=== PATIENT | male | born 1965 | race Caucasian/White ===

== ENCOUNTER 2019-10-21 18:12 | Emergency (ER) | payer SELFPAY ==
[~2019-10-21] VITALS: Ht 175.3 cm; Wt 100.0 kg
[2019-10-21 18:26] VITALS: TEMP 97.1
[2019-10-21 19:30] LABS: HEMATOCRIT 44.1 % (42.0-52.0); HEMOGLOBIN 14.6 g/dl (13.5-18.0); MEAN CELL VOLUME 84 fl (80.0-100.0); MEAN CORPUSCULAR HEMOGLOBIN 28 pg (27.0-31.0); MEAN CORPUSCULAR HGB CONC 33 g/dl (33.0-37.0); MEAN PLATELET VOLUME 10.4 fl (7.4-10.4); PLATELET COUNT 341 K/mm3 (130-400); RED BLOOD COUNT 5.23 M/mm3 (4.20-5.60); REDCELL DISTRIBUTION WIDTH-CV 14.6 % (11.5-14.5)
[2019-10-21 20:02] LABS: ALBUMIN 4.3 gm/dL (3.5-5.0); BILIRUBIN,TOTAL 0.5 mg/dL (0.0-1.0); C-REACTIVE PROTEIN 5.8 mg/dL (0.0-0.9); CALCIUM 8.7 mg/dL (8.4-10.2); CREATININE, serum 0.95 (0.66-1.25); TOTAL PROTEIN 7.7 gm/dL (6.4-8.2)
[2019-10-21 20:42] LABS: COLLECTION METHOD CLEAN CATCH
[2019-10-21 20:47] LABS: MUCOUS Present /lpf; PH 5 (5-8); SQUAMOUS EPITHELIAL None Seen /hpf; URINE APPEARANCE Clear; URINE BACTERIA None Seen /hpf; URINE BILIRUBIN Negative (NEGATIVE); URINE BLOOD Negative (NEGATIVE); URINE COLOR Yellow; URINE GLUCOSE Negative (NEGATIVE); URINE KETONE Negative (NEGATIVE); URINE LEUKOCYTE ESTERASE Negative (NEGATIVE); URINE NITRATE Negative (NEGATIVE); URINE PROTEIN(semi-quant) Negative (NEGATIVE); URINE RBC 0-2 /hpf; URINE UROBILINOGEN Negative (NEGATIVE)
[2019-10-21] MEDS ORDERED: CIPRO 500MG TA500 MG PO (21:19)
[2019-10-21] MEDS ORDERED: NORCO 325 MG-51 TAB PO (21:19)
[2019-10-21] MEDS ORDERED: PHENERGAN 25 TA25 MG PO (21:19)
[2019-10-21] MEDS ORDERED: FLAGYL500 MG PO (21:19)
[2019-10-21 21:24] LABS: BAND 3 % (0-10); LYMPHOCYTE 28 % (20.0-51.0); MICROCYTOSIS 1+; NEUTROPHILS 58 % (42.0-75.2); PLATELET ESTIMATE NORMAL (NORMAL)
[2019-10-21 21:30] VITALS: BP 147/89; PULSE 93
== END 2019-10-21 21:40 | disposition home or self-care (01) ==
LOC: COL.ER 18:12
PROVIDERS: Emergency Medicine
DX: R10.2 Pelvic and perineal pain (principal)
CPT/HCPCS: J1170; J2405; J7030; Q9967

== ENCOUNTER 2020-02-20 18:06 | Emergency (ER) | payer SELFPAY ==
[~2020-02-20] VITALS: Ht 175.3 cm; Wt 109.1 kg
[~2020-02-20 18:06] MED LIST: CIPRO 500MG TA500 MG PO; FLAGYL500 MG PO; NORCO 325 MG-51 TAB PO; PHENERGAN 25 TA25 MG PO
[2020-02-20 18:43] VITALS: TEMP 98.6
[2020-02-20 19:31] LABS: HEMATOCRIT 45.9 % (42.0-52.0); HEMOGLOBIN 15.4 g/dl (13.5-18.0); MEAN CELL VOLUME 84 fl (80.0-100.0); MEAN CORPUSCULAR HEMOGLOBIN 28 pg (27.0-31.0); MEAN CORPUSCULAR HGB CONC 34 g/dl (33.0-37.0); MEAN PLATELET VOLUME 10.5 fl (7.4-10.4); PLATELET COUNT 350 K/mm3 (130-400); RED BLOOD COUNT 5.45 M/mm3 (4.20-5.60); REDCELL DISTRIBUTION WIDTH-CV 15.2 % (11.5-14.5)
[2020-02-20 19:42] LABS: STREP SCREEN NEGATIVE
[2020-02-20 19:47] LABS: ALANINE AMINOTRANSFERASE 33 U/L (4-49); ALBUMIN 4.4 gm/dL (3.5-5.0); ALKALINE PHOSPHATASE 117 U/L (50-136); ANION GAP 8 mmol/L (7-16); AST,SGOT 34 U/L (15-37); BILIRUBIN,TOTAL 0.4 mg/dL (0.0-1.0); BLOOD UREA NITROGEN 16 mg/dL (9-20); CALCIUM 8.9 mg/dL (8.4-10.2); CARBON DIOXIDE 25 mmol/L (22-30); CHLORIDE 103 mmol/L (98-107); CREATININE, serum 0.87 (0.66-1.25); GLUCOSE 94 mg/dL (74-106); POTASSIUM 4.3 mmol/L (3.4-5.0); SODIUM 135 mmol/L (137-145); TOTAL PROTEIN 7.8 gm/dL (6.4-8.2)
[2020-02-20 19:50] LABS: BAND 2 % (0-10); EOSINOPHIL 5 % (0-4); LYMPHOCYTE 40 % (20.0-51.0); NEUTROPHILS 45 % (42.0-75.2); PLATELET ESTIMATE NORMAL (NORMAL)
[2020-02-20 19:51] LABS: ANISOCYTOSIS 1+
[2020-02-20 20:26] LABS: TROPONIN-I < 0.012 ng/mL (0.000-0.035)
[2020-02-20] MEDS ORDERED: PREDNISONE20 MG PO (20:39)
[2020-02-20] MEDS ORDERED: DOXYCYCLINE 10100 MG PO (20:39)
[2020-02-20 22:09] VITALS: BP 149/94; PULSE 74
== END 2020-02-20 22:10 | disposition home or self-care (01) ==
LOC: COL.ER 18:06
PROVIDERS: Emergency Medicine
DX: J45.909 Unspecified asthma, uncomplicated (principal); R07.81 Pleurodynia; F17.210 Nicotine dependence, cigarettes, uncomplicated; J02.9 Acute pharyngitis, unspecified; Z90.89 Acquired absence of other organs; Z90.49 Acquired absence of other specified parts of digestive tract
CPT/HCPCS: J2270; J3010; J7030; J7512

== ENCOUNTER 2021-03-19 10:20 | Emergency (ER) | payer SELFPAY ==
[~2021-03-19] VITALS: Ht 175.3 cm; Wt 119.5 kg
[~2021-03-19 10:20] MED LIST changes: +DOXYCYCLINE 10100 MG PO; +PREDNISONE20 MG PO
[2021-03-19 10:33] VITALS: TEMP 98.2
[2021-03-19 11:11] LABS: BASO # 0.1 (0.0-0.2); BASO % 0.7 % (0.0-2.0); EOS # 0.6 (0.0-0.7); EOS % 5.2 % (0-4.0); GRAN # 5.6 (1.4-6.5); HEMATOCRIT 43.3 % (42.0-52.0); LYMPH # 3.5 (1.2-3.4); LYMPH % 31.4 % (20.0-51.0); MEAN CELL VOLUME 84 fl (80.0-100.0); MEAN CORPUSCULAR HEMOGLOBIN 27 pg (27.0-31.0); MEAN CORPUSCULAR HGB CONC 32 g/dl (33.0-37.0); MEAN PLATELET VOLUME 10.9 fl (7.4-10.4); MONO # 1.3 (0.1-0.6); MONO % 11.6 % (1.7-9.3); PLATELET COUNT 349 K/mm3 (130-400); RED BLOOD COUNT 5.16 M/mm3 (4.20-5.60); REDCELL DISTRIBUTION WIDTH-CV 15.2 % (11.5-14.5)
[2021-03-19 11:21] LABS: ALBUMIN 4.1 gm/dL (3.5-5.0); BILIRUBIN,TOTAL 0.3 mg/dL (0.0-1.0); CALCIUM 8.9 mg/dL (8.4-10.2); CREATININE, serum 0.9 (0.66-1.25); POTASSIUM 4.1 mmol/L (3.4-5.0); TOTAL PROTEIN 7.6 gm/dL (6.4-8.2)
[2021-03-19 11:33] LABS: TROPONIN-I 0.033 ng/mL (0.000-0.035)
[2021-03-19 11:46] LABS: C-REACTIVE PROTEIN 1.1 mg/dL (0.0-0.9)
[2021-03-19 12:11] LABS: COLLECTION METHOD RANDOM VOIDED
[2021-03-19 12:17] LABS: PH 5 (5-8); SQUAMOUS EPITHELIAL None Seen /hpf; URINE APPEARANCE Clear; URINE BACTERIA None Seen /hpf; URINE BILIRUBIN Negative (NEGATIVE); URINE BLOOD Negative (NEGATIVE); URINE COLOR Straw; URINE GLUCOSE Negative (NEGATIVE); URINE KETONE Negative (NEGATIVE); URINE LEUKOCYTE ESTERASE Negative (NEGATIVE); URINE NITRATE Negative (NEGATIVE); URINE PROTEIN(semi-quant) 2+ (NEGATIVE); URINE RBC 0-2 /hpf; URINE UROBILINOGEN Negative (NEGATIVE)
[2021-03-19 12:31] LABS: TRICYCLIC ANTIDEPRESS URINE NEGATIVE
[2021-03-19] MEDS ORDERED: DOXYCYCLINE 10100 MG PO (17:33)
[2021-03-19] MEDS ORDERED: PRINIVIL10 MG PO ×2 (17:33)
[2021-03-19] MEDS ORDERED: OMNICEF 300MG300 MG PO (17:33)
[2021-03-19] MEDS ORDERED: LASIX 40MG TABL40 MG PO ×2 (17:33)
[2021-03-19 18:03] VITALS: BP 149/100; PULSE 78
== END 2021-03-19 18:12 | disposition home or self-care (01) ==
LOC: COL.ER 10:20
PROVIDERS: Family Medicine; Physician Assistant
DX: F15.10 Other stimulant abuse, uncomplicated (principal); L03.116 Cellulitis of left lower limb; L03.115 Cellulitis of right lower limb; R13.10 Dysphagia, unspecified; R06.02 Shortness of breath; I11.0 Hypertensive heart disease with heart failure; I50.9 Heart failure, unspecified; F17.210 Nicotine dependence, cigarettes, uncomplicated; Z20.822 Contact with and (suspected) exposure to COVID-19
CPT/HCPCS: J1940; J2543; J3010; J3370; J7030; J7050; Q9967

== ENCOUNTER 2021-04-06 07:56 | Observation (INO) | payer SELFPAY ==
[~2021-04-06] VITALS: Ht 175.3 cm; Wt 119.5 kg
[~2021-04-06 07:56] MED LIST changes: +LASIX 40MG TABL40 MG PO; +OMNICEF 300MG300 MG PO; +PRINIVIL10 MG PO
[2021-04-06 08:33] LABS: HEMATOCRIT 43.3 % (42.0-52.0); MEAN CELL VOLUME 85 fl (80.0-100.0); MEAN CORPUSCULAR HEMOGLOBIN 27 pg (27.0-31.0); MEAN CORPUSCULAR HGB CONC 32 g/dl (33.0-37.0); MEAN PLATELET VOLUME 11.3 fl (7.4-10.4); PLATELET COUNT 324 K/mm3 (130-400); RED BLOOD COUNT 5.12 M/mm3 (4.20-5.60); REDCELL DISTRIBUTION WIDTH-CV 15.1 % (11.5-14.5)
[2021-04-06 08:40] LABS: PROTHROMBIN TIME 11.2 SECONDS (9.7-12.8)
[2021-04-06 08:43] LABS: PARTIAL THROMBOPLASTIN TIME 20.8 SECONDS (26.0-37.0)
[2021-04-06 08:44] LABS: ALBUMIN 4.1 gm/dL (3.5-5.0); BILIRUBIN,TOTAL 0.4 mg/dL (0.0-1.0); CALCIUM 9.3 mg/dL (8.4-10.2); CREATININE, serum 0.97 (0.66-1.25); POTASSIUM 4.4 mmol/L (3.4-5.0); TOTAL PROTEIN 7.6 gm/dL (6.4-8.2)
[2021-04-06 08:56] LABS: BAND 9 % (0-10); EOSINOPHIL 6 % (0-4); LYMPHOCYTE 20 % (20.0-51.0); NEUTROPHILS 55 % (42.0-75.2); TROPONIN-I 0.016 ng/mL (0.000-0.035)
[2021-04-06 08:57] LABS: PLATELET ESTIMATE NORMAL (NORMAL)
[2021-04-06 09:02] LABS: HYPOCHROMIA 1+
[2021-04-06 10:09] LABS: ARTERIAL BLD GAS O2 SATURATION 94.7 % (92-100); ARTERIAL BLD GAS TCO2 CT 28.3; ARTERIAL BLOOD GAS BASE EXCESS 0.6 (-2-2); ARTERIAL BLOOD GAS HCO3 26.8 meq/L (22-26); ARTERIAL BLOOD GAS PO2 74.2 mmHg (80-100); ARTERIAL BLOOD GAS pH 7.36 (7.35-7.45)
[2021-04-06 16:13] VITALS: BP 116/56; PULSE 61; TEMP 98
[2021-04-06 19:44] VITALS: BP 118/62; PULSE 88; TEMP 98.2
[2021-04-06 21:14] VITALS: BP 132/91; PULSE 88
[2021-04-06 21:36] LABS: COLLECTION METHOD CLEAN CATCH
[2021-04-06 21:43] LABS: PH 6 (5-8); SQUAMOUS EPITHELIAL None Seen /hpf; URINE APPEARANCE Clear; URINE BACTERIA None Seen /hpf; URINE BILIRUBIN Negative (NEGATIVE); URINE BLOOD 2+ (NEGATIVE); URINE COLOR Straw; URINE GLUCOSE Negative (NEGATIVE); URINE KETONE Negative (NEGATIVE); URINE LEUKOCYTE ESTERASE Negative (NEGATIVE); URINE NITRATE Negative (NEGATIVE); URINE PROTEIN(semi-quant) Negative (NEGATIVE); URINE RBC 0-2 /hpf; URINE UROBILINOGEN Negative (NEGATIVE)
[2021-04-06 21:55] LABS: TRICYCLIC ANTIDEPRESS URINE NEGATIVE
[2021-04-06 23:51] VITALS: BP 123/47; PULSE 93; TEMP 97.8
[2021-04-07] VITALS (10 sets, daily range): BP systolic 95–155; BP diastolic 45–95; PULSE 56–93; TEMP 98.1–98.7
[2021-04-07 06:32] LABS: HEMATOCRIT 46.6 % (42.0-52.0); HEMOGLOBIN 15.1 g/dl (13.5-18.0); MEAN CELL VOLUME 84 fl (80.0-100.0); MEAN CORPUSCULAR HEMOGLOBIN 27 pg (27.0-31.0); MEAN CORPUSCULAR HGB CONC 32 g/dl (33.0-37.0); MEAN PLATELET VOLUME 11.3 fl (7.4-10.4); PLATELET COUNT 327 K/mm3 (130-400); RED BLOOD COUNT 5.52 M/mm3 (4.20-5.60); REDCELL DISTRIBUTION WIDTH-CV 15.1 % (11.5-14.5)
[2021-04-07 06:42] LABS: ALBUMIN 4.4 gm/dL (3.5-5.0); BILIRUBIN,TOTAL 0.4 mg/dL (0.0-1.0); CALCIUM 8.8 mg/dL (8.4-10.2); CREATININE, serum 1.29 (0.66-1.25); MAGNESIUM 1.8 mg/dL (1.6-2.3); POTASSIUM 4.6 mmol/L (3.4-5.0); TOTAL PROTEIN 8.2 gm/dL (6.4-8.2)
[2021-04-07 07:10] LABS: TROPONIN-I 0.014 ng/mL (0.000-0.035)
[2021-04-07 07:47] LABS: BAND 16 % (0-10); EOSINOPHIL 1 % (0-4); LYMPHOCYTE 19 % (20.0-51.0); NEUTROPHILS 58 % (42.0-75.2)
[2021-04-07 07:48] LABS: PLATELET ESTIMATE NORMAL (NORMAL)
[2021-04-08 00:27] VITALS: BP 114/57; PULSE 89; TEMP 98.9
[2021-04-08 04:13] VITALS: BP 114/61; PULSE 89; TEMP 98.5
[2021-04-08 07:13] LABS: BASO # 0.1 (0.0-0.2); BASO % 0.5 % (0.0-2.0); EOS # 0.5 (0.0-0.7); GRAN # 6.6 (1.4-6.5); GRAN % 58.7 % (42.2-75.2); HEMATOCRIT 46.2 % (42.0-52.0); HEMOGLOBIN 14.9 g/dl (13.5-18.0); LYMPH # 2.6 (1.2-3.4); LYMPH % 23.1 % (20.0-51.0); MEAN CELL VOLUME 85 fl (80.0-100.0); MEAN CORPUSCULAR HEMOGLOBIN 27 pg (27.0-31.0); MEAN CORPUSCULAR HGB CONC 32 g/dl (33.0-37.0); MEAN PLATELET VOLUME 11.1 fl (7.4-10.4); MONO # 1.4 (0.1-0.6); MONO % 12.8 % (1.7-9.3); PLATELET COUNT 323 K/mm3 (130-400); RED BLOOD COUNT 5.44 M/mm3 (4.20-5.60); REDCELL DISTRIBUTION WIDTH-CV 15.2 % (11.5-14.5)
[2021-04-08 07:19] LABS: CALCIUM 8.7 mg/dL (8.4-10.2); CREATININE, serum 1.41 (0.66-1.25); POTASSIUM 4.5 mmol/L (3.4-5.0)
[2021-04-08 07:36] VITALS: BP 133/85; PULSE 94; TEMP 98.4
[2021-04-08] MEDS ORDERED: COREG 3.123.125 MG/T PO (09:08)
[2021-04-08] MEDS ORDERED: OMNICEF 300MG300 MG PO (09:10)
[2021-04-08] MEDS ORDERED: CIPRODEX OT (09:10)
[2021-04-08] MEDS ORDERED: PRINIVIL5 MG PO (09:11)
[2021-04-08 12:06] VITALS: BP 128/65; PULSE 88; TEMP 98.6
[2021-04-08] MEDS ORDERED: LIPITOR20 MG PO (12:24)
== END 2021-04-08 13:00 | disposition home or self-care (01) ==
LOC: COL.ER 07:56 → MEDICAL 11:31
PROVIDERS: Family Medicine; Physician Assistant; ADMIT Internal Medicine
DX: I11.0 Hypertensive heart disease with heart failure (principal); I50.23 Acute on chronic systolic (congestive) heart failure; I42.0 Dilated cardiomyopathy; H66.90 Otitis media, unspecified, unspecified ear; E78.5 Hyperlipidemia, unspecified; D72.829 Elevated white blood cell count, unspecified; N17.9 Acute kidney failure, unspecified; G40.909 Epilepsy, unspecified, not intractable, without status epilepticus; E11.9 Type 2 diabetes mellitus without complications; E66.9 Obesity, unspecified; F19.90 Other psychoactive substance use, unspecified, uncomplicated; F17.210 Nicotine dependence, cigarettes, uncomplicated; Z20.822 Contact with and (suspected) exposure to COVID-19; Z79.899 Other long term (current) drug therapy; Z80.9 Family history of malignant neoplasm, unspecified
CPT/HCPCS: C1769; G0378; J1644; J1650; J1815; J1940; J2250; J2270; J3010; Q9967

== ENCOUNTER 2021-07-24 18:31 | Emergency (ER) | payer OTHER ==
[~2021-07-24] VITALS: Ht 175.3 cm; Wt 127.3 kg
[~2021-07-24 18:31] MED LIST changes: +CIPRODEX OT; +COREG 3.123.125 MG/T PO; +LIPITOR20 MG PO; +PRINIVIL5 MG PO
[2021-07-24 19:38] LABS: HEMATOCRIT 40.2 % (42.0-52.0); HEMOGLOBIN 13.2 g/dl (13.5-18.0); MEAN CELL VOLUME 85 fl (80.0-100.0); MEAN CORPUSCULAR HEMOGLOBIN 28 pg (27.0-31.0); MEAN CORPUSCULAR HGB CONC 33 g/dl (33.0-37.0); MEAN PLATELET VOLUME 11.6 fl (7.4-10.4); PLATELET COUNT 352 K/mm3 (130-400); RED BLOOD COUNT 4.75 M/mm3 (4.20-5.60); REDCELL DISTRIBUTION WIDTH-CV 15.4 % (11.5-14.5)
[2021-07-24 19:59] LABS: ANISOCYTOSIS 1+; BAND 2 % (0-10); EOSINOPHIL 2 % (0-4); HYPOCHROMIA 1+; LYMPHOCYTE 12 % (20.0-51.0); NEUTROPHILS 75 % (42.0-75.2); PLATELET ESTIMATE NORMAL (NORMAL)
[2021-07-24 20:17] LABS: ALBUMIN 3.6 gm/dL (3.5-5.0); BILIRUBIN,TOTAL 0.3 mg/dL (0.2-1.2); C-REACTIVE PROTEIN 3.2 mg/dL (0.00-0.50); CALCIUM 9.2 mg/dL (8.4-10.2); CREATININE, serum 1.38 mg/dL (0.72-1.25); POTASSIUM 4.5 mmol/L (3.5-4.5); TOTAL PROTEIN 7.7 gm/dL (6.2-8.1)
[2021-07-24] MEDS ORDERED: OXYCODONE H5 MG/5 ML PO (20:59)
[2021-07-24 21:37] VITALS: BP 146/64; PULSE 72; TEMP 97.7
== END 2021-07-24 21:39 | disposition home or self-care (01) ==
LOC: COL.ER 18:31
PROVIDERS: Nurse Practitioner; Personal Emergency Response Attendant
DX: G89.18 Other acute postprocedural pain (principal); I50.9 Heart failure, unspecified; I11.0 Hypertensive heart disease with heart failure; F17.200 Nicotine dependence, unspecified, uncomplicated; Z90.09 Acquired absence of other part of head and neck; Z79.899 Other long term (current) drug therapy
CPT/HCPCS: J1170; J7030

== ENCOUNTER 2021-07-25 21:48 | Observation (INO) | payer OTHER ==
[~2021-07-25] VITALS: Ht 175.3 cm; Wt 129.8 kg
[~2021-07-25 21:48] MED LIST changes: +OXYCODONE H5 MG/5 ML PO
[2021-07-25 22:39] LABS: BASO # 0.1 K/mm3 (0.0-0.2); BASO % 0.3 % (0.0-2.0); EOS # 0.3 K/mm3 (0.0-0.7); EOS % 2.1 % (0-4.0); GRAN # 8.8 K/mm3 (1.4-6.5); GRAN % 61.2 % (42.2-75.2); HEMATOCRIT 39.5 % (42.0-52.0); LYMPH # 3.5 K/mm3 (1.2-3.4); LYMPH % 24.5 % (20.0-51.0); MEAN CELL VOLUME 84 fl (80.0-100.0); MEAN CORPUSCULAR HEMOGLOBIN 28 pg (27.0-31.0); MEAN CORPUSCULAR HGB CONC 33 g/dl (33.0-37.0); MEAN PLATELET VOLUME 10.8 fl (7.4-10.4); MONO # 1.5 K/mm3 (0.1-0.6); MONO % 10.6 % (1.7-9.3); PLATELET COUNT 308 K/mm3 (130-400); RED BLOOD COUNT 4.72 M/mm3 (4.20-5.60); REDCELL DISTRIBUTION WIDTH-CV 15.2 % (11.5-14.5)
[2021-07-25 22:57] LABS: ALBUMIN 3.5 gm/dL (3.5-5.0); BILIRUBIN,TOTAL 0.5 mg/dL (0.2-1.2); C-REACTIVE PROTEIN 3.5 mg/dL (0.00-0.50); CALCIUM 9.7 mg/dL (8.4-10.2); CREATININE, serum 0.94 mg/dL (0.72-1.25); POTASSIUM 4.6 mmol/L (3.5-4.5); TOTAL PROTEIN 7.6 gm/dL (6.2-8.1)
[2021-07-26] VITALS (608 sets, daily range): BP systolic 124–190; BP diastolic 72–92; PULSE 60–81; TEMP 97.7–98.8; O2SAT 82–98
[2021-07-26] MEDS ORDERED: LASIX 40MG TABL40 MG PO (03:38)
[2021-07-26 09:10] LABS: CALCIUM 9.1 mg/dL (8.4-10.2); POTASSIUM 4.7 mmol/L (3.5-4.5)
--- NOTE | 2021-07-26 10:45 | NUR ---
MR. PIERRE WAS SLEEPING AT MORNING ASSESSMENT, EASILY TO WAKE. HIS SPEACH IS THICK AND MUFFLED DUE TO UPPER AIRWAY OBSTRUCTION. HE COMPLAINED OF PAIN IN HIS THROAT, WORSE ON THE LEFT SIDE. WHEN HE FALLS ASLEEP MR. DE SANTIAGO OXYGEN SATURATION FALLS INTO THE 80S AND HEART RATE INTO THE 40S. AT THIS TIME THE HEAD OF HIS BED IS ELEVATED AND HAS 4 PILLOWS BEHIND HIM.
[2021-07-26 11:00] LABS: BASO % 0.2 % (0.0-2.0); GRAN # 9.5 K/mm3 (1.4-6.5); GRAN % 78.2 % (42.2-75.2); HEMATOCRIT 43.2 % (42.0-52.0); HEMOGLOBIN 13.7 g/dl (13.5-18.0); LYMPH # 2.1 K/mm3 (1.2-3.4); LYMPH % 16.9 % (20.0-51.0); MEAN CELL VOLUME 85 fl (80.0-100.0); MEAN CORPUSCULAR HEMOGLOBIN 27 pg (27.0-31.0); MEAN CORPUSCULAR HGB CONC 32 g/dl (33.0-37.0); MEAN PLATELET VOLUME 11.3 fl (7.4-10.4); MONO # 0.4 K/mm3 (0.1-0.6); MONO % 3.5 % (1.7-9.3); PLATELET COUNT 380 K/mm3 (130-400); RED BLOOD COUNT 5.06 M/mm3 (4.20-5.60); REDCELL DISTRIBUTION WIDTH-CV 15.4 % (11.5-14.5)
--- NOTE | 2021-07-26 12:36 | NUR ---
Initial visit; Patient thanked Mixer Lever Operator for looking in on him and offering prayer and God's blessings. Mixer Lever Operator will keep Patient in her prayers and will follow up.
--- NOTE | 2021-07-26 14:35 | NUR ---
Manager Lvn met with patient to discuss discharge planning. Patient lives with his life partner, Yolanda Ocampo (ph#[phone]) and advised they are not yet. Patient sees Jazmín Cervantes at [facility] for primary care and obtains medications from [facility]. Patient does not use any DME at home, however advised he sometimes uses a walking stick. Patient reports independence with ADLS. SW discussed Advance Directives with patient who advised he would like to designate his partner, Yolanda as DPOA-HC. Patient verbalized understanding of designating DPOA and chose to designate Yolanda and no one else. SW and RN provided witness signature. SW provided original and copies to patient, then placed copy in chart. Discharge Plan: Home
--- NOTE | 2021-07-26 22:00 | NUR ---
PATIENT COMPLAINING OF PAIN TO THROAT, GIVEN PRN LIDOCAINE SWISH AND SWALLOW ALSO WITH APPROVAL OF LINNETTE ANTONY PATIENT GIVEN ICE CHIPS WHICH HE DID WELL WITH PATIENT ASKED FOR SOME JELLO, ABLE TO CONSUME WITHOUT DIFFICULTY EXPLAINED THAT ICE CHIPS AND LIDOCAIN SWISH AND SWALLOW WILL BE MORE EFFECTIVE AT RELIEVING THROAT PAIN THAN SYSTEMIC PAIN MEDICATION, PATIENT APPEARS ACCEPTING OF THIS AT THIS TIME
--- NOTE | 2021-07-26 22:01 | NUR ---
NOTED NO PO PAIN MEDICATIONS ORDERED, PATIENT STATED THAT THE TOLD HIM HE WAS GOING TO SWITCH HIS PAIN MEDICATIONS
--- NOTE | 2021-07-26 23:58 | NUR ---
DISSCUSSED WITH LINNETTE SIDDIQI PATIENT PAIN MANAGEMENT AND NOTE FROM DR. HARRY REGARDING CHANGE IN PAIN MEDICATION ORDER OBTAINED FOR OXYCODONE PER DR. HARRY'S NOTE
[2021-07-27] VITALS (387 sets, daily range): BP systolic 128–134; BP diastolic 68–81; PULSE 50–58; TEMP 98–98.2; O2SAT 68–99
--- NOTE | 2021-07-27 00:16 | NUR ---
ENTERED PATIENT ROOM TO OBTAIN BLOOD SUGAR AND TELL HIM ABOUT NEW ORDERS FOR PAIN MEDICATION, PATIENT SNORING ABLE TO AWAKEN PATIENT AND OBTAIN BLOOD SUGAR, BUT PATIENT FELL INSTANTLY BACK TO SLEEP
--- NOTE | 2021-07-27 05:40 | NUR ---
Report received DIVINA Rice
[2021-07-27 07:08] LABS: HEMATOCRIT 41.4 % (42.0-52.0); HEMOGLOBIN 13.4 g/dl (13.5-18.0); MEAN CELL VOLUME 85 fl (80.0-100.0); MEAN CORPUSCULAR HEMOGLOBIN 28 pg (27.0-31.0); MEAN CORPUSCULAR HGB CONC 32 g/dl (33.0-37.0); PLATELET COUNT 384 K/mm3 (130-400); RED BLOOD COUNT 4.88 M/mm3 (4.20-5.60); REDCELL DISTRIBUTION WIDTH-CV 15.3 % (11.5-14.5)
[2021-07-27 07:27] LABS: CALCIUM 9.3 mg/dL (8.4-10.2); CREATININE, serum 1.04 mg/dL (0.72-1.25); POTASSIUM 4.2 mmol/L (3.5-4.5)
--- NOTE | 2021-07-27 07:29 | NUR ---
Report given to DIVINA Robles and DIVINA Ren
[2021-07-27 07:50] LABS: BAND 6 % (0-10); EOSINOPHIL 1 % (0-4); LYMPHOCYTE 21 % (20.0-51.0); METAMYELOCYTE 1 % (0-0); NEUTROPHILS 58 % (42.0-75.2); PLATELET ESTIMATE NORMAL (NORMAL)
--- NOTE | 2021-07-27 11:27 | NUR ---
Patient to transfer up to the medical floor and is on 3 liters of oxygen at this time.
--- NOTE | 2021-07-27 13:30 | NUR ---
PT TOLERATED SOFT DIET FOR LUNCH WITHOUT DIFFICULTY. PT STATES WARM FOOD "GOES DOWN EASY", NOTED SOME PAIN WITH COLD DRINKS. STATES WILL JUST LIMIT COLD FOOD AT HOME. DR. GOYAL CALLED, OK TO DISCHARGE PT. WILL GET PT READY TO GO HOME. SIGNIFICANT OTHER AT BEDSIDE.
[2021-07-27] MEDS ORDERED: GLUCOPHAGE500 MG/TAB PO (13:58)
[2021-07-27] MEDS ORDERED: PREDNISONE10 MG PO (14:02)
[2021-07-27] MEDS ORDERED: PERCOCET 325 MG1 TA3 PO (14:04)
--- NOTE | 2021-07-27 14:30 | NUR ---
PT DISCHARGED TO HOME VIA WHEELCHAIR TO PT ENTERANCE. SIGNIFICANT OTHER DRIVING PT HOME. ALL INSTRUCTIONS GIVEN AND WENT OVER WITH PT, STATES UNDERSTANDING. PIV DC'D WITH NO COMPLICATIONS.
--- NOTE | 2021-07-27 15:09 | NUR ---
Freight Separator collaborated with RNChantelle as patient discharged home today. Chantelle advised patient was weened down to room air prior to discharge and has follow up scheduled for outpatient sleep study.
== END 2021-07-27 14:33 | disposition home or self-care (01) ==
LOC: COL.ER 21:48 → ICU 07-26 01:30
PROVIDERS: Emergency Medicine; Student in an Organized Health Care Education/Training Program; ADMIT Student in an Organized Health Care Education/Training Program
DX: J95.89 Other postprocedural complications and disorders of respiratory system, not elsewhere classified (principal); R52 Pain, unspecified; R06.00 Dyspnea, unspecified; D72.829 Elevated white blood cell count, unspecified; I11.0 Hypertensive heart disease with heart failure; I50.20 Unspecified systolic (congestive) heart failure; I42.0 Dilated cardiomyopathy; E11.9 Type 2 diabetes mellitus without complications; E66.9 Obesity, unspecified; G40.909 Epilepsy, unspecified, not intractable, without status epilepticus; F17.210 Nicotine dependence, cigarettes, uncomplicated; F15.90 Other stimulant use, unspecified, uncomplicated; E78.5 Hyperlipidemia, unspecified; Z79.891 Long term (current) use of opiate analgesic; Z79.82 Long term (current) use of aspirin; Z79.899 Other long term (current) drug therapy
CPT/HCPCS: G0378; J1100; J1650; J1815; J1940; J2270; J3010; J7030; Q9967

== ENCOUNTER 2021-08-01 15:00 | Emergency (ER) | payer OTHER ==
[~2021-08-01] VITALS: Ht 175.3 cm; Wt 124.5 kg
[~2021-08-01 15:00] MED LIST changes: +GLUCOPHAGE500 MG/TAB PO; +PERCOCET 325 MG1 TA3 PO; +PREDNISONE10 MG PO
[2021-08-01 15:49] VITALS: BP 125/70; PULSE 70; TEMP 97
== END 2021-08-01 16:15 | disposition home or self-care (01) ==
LOC: COL.ER 15:00
DX: G89.18 Other acute postprocedural pain (principal); J02.9 Acute pharyngitis, unspecified; I11.0 Hypertensive heart disease with heart failure; F17.210 Nicotine dependence, cigarettes, uncomplicated; Z90.89 Acquired absence of other organs; Z88.1 Allergy status to other antibiotic agents; Z79.899 Other long term (current) drug therapy

== ENCOUNTER 2022-01-19 09:53 | Inpatient (IN) | payer SELFPAY ==
[~2022-01-19] VITALS: Ht 175.3 cm; Wt 128.0 kg
[2022-01-19 11:17] LABS: HEMATOCRIT 42.9 % (42.0-52.0); HEMOGLOBIN 14.6 g/dl (13.5-18.0); MEAN CELL VOLUME 82 fl (80.0-100.0); MEAN CORPUSCULAR HEMOGLOBIN 28 pg (27-31); MEAN CORPUSCULAR HGB CONC 34 g/dl (33.0-37.0); MEAN PLATELET VOLUME 11.5 fl (7.4-10.4); PLATELET COUNT 331 K/mm3 (130-400); RED BLOOD COUNT 5.21 M/mm3 (4.20-5.60); REDCELL DISTRIBUTION WIDTH-CV 14.9 % (11.5-14.5)
[2022-01-19 11:39] LABS: ALANINE AMINOTRANSFERASE 45 U/L (0-55); ALBUMIN 3.8 gm/dL (3.5-5.0); ALKALINE PHOSPHATASE 139 U/L (40-150); ANION GAP 13 mmol/L (7-16); AST,SGOT 49 U/L (5-34); BILIRUBIN,TOTAL 0.4 mg/dL (0.2-1.2); BLOOD UREA NITROGEN 23 mg/dL (8-26); C-REACTIVE PROTEIN 1.16 mg/dL (0.00-0.50); CALCIUM 9.3 mg/dL (8.4-10.2); CARBON DIOXIDE 24 mmol/L (22-29); CHLORIDE 93 mmol/L (98-107); CREATININE, serum 1.32 mg/dL (0.72-1.25); LIPASE 259 U/L (8-78); SODIUM 130 mmol/L (136-145); TOTAL PROTEIN 8.2 gm/dL (6.2-8.1)
[2022-01-19 11:40] LABS: BAND 2 % (0-10); BASOPHIL 1 % (0-2); EOSINOPHIL 2 % (0-4); GLUCOSE 431 mg/dL (70-99); LYMPHOCYTE 44 % (20.0-51.0); METAMYELOCYTE 1 % (0-0); NEUTROPHILS 44 % (42.0-75.2); PLATELET ESTIMATE NORMAL (NORMAL)
[2022-01-19 11:41] LABS: STOMATOCYTE 1+
[2022-01-19 11:48] LABS: TROPONIN-I < 0.010 ng/mL (0.00-0.033)
[2022-01-19 12:06] LABS: ARTERIAL BLD GAS O2 SATURATION 95.4 % (92-100); ARTERIAL BLD GAS TCO2 CT 29.8; ARTERIAL BLOOD GAS HCO3 28.1 meq/L (22-26); ARTERIAL BLOOD GAS PCO2 54.3 mmHg (35-45); ARTERIAL BLOOD GAS PO2 80.1 mmHg (80-100); ARTERIAL BLOOD GAS pH 7.33 (7.35-7.45)
[2022-01-19] MEDS ORDERED: COREG12.5 MG PO (12:46)
[2022-01-19] MEDS ORDERED: GLUCOSAMINE & C1 CA2 PO (12:47)
[2022-01-19] MEDS ORDERED: ASPIRIN 81M81 MG/TA2 PO (12:48)
[2022-01-19] MEDS ORDERED: ALDACTONE 25MG25 M1 PO (12:49)
--- NOTE | 2022-01-19 16:45 | NUR ---
PT ARRIVED FROM THE ED. DIVINA CÁRDENAS DROPPED PATIENT OFF IN THE ROOM. THE PATIENT IS SLEEPING AT THIS TIME.
[2022-01-19 17:59] VITALS: BP 118/79; PULSE 86; TEMP 98.3
[2022-01-19 20:21] VITALS: BP 92/49; PULSE 78; TEMP 98.2
--- NOTE | 2022-01-19 21:55 | NUR ---
Patient assessed around 1949. Alert and oriented x 4, but drowsy. Awakens easily. Denies having pain and discomfort. Patient did not have IV access. Beef Cattle Grazier able to obtain IV access to right hand around 2029, and started IV fluids and given Solumedrol per orders at that time. Retimed medications due to giving medications late. Reports SOB and dyspnea with exertion. LS CTA in upper lobes, diminished in lower. Reports moist cough with thick yellow sputum production. Given sputum specimen cup to obtain sputum, but none obtained at this time. On oxygen at 4 L/min via NC. HRR. Telemetry in place. BSAx4. Generalized edema, 1+ BUE and BLE. Patient voices no questions, needs, or concerns at this time. In bed with call light within reach. Bed alarm on for safety.
[2022-01-20] VITALS (7 sets, daily range): BP systolic 109–150; BP diastolic 59–84; PULSE 83–105; TEMP 98–99
--- NOTE | 2022-01-20 05:55 | NUR ---
Patient complained of headache once this shift and given PRN APAP. Continues on IV fluids per orders. Afebrile this shift. Continues on oxygen at 4 L/min via NC, but does keep taking oxygen off. Recieved steroids and ABX per orders. Patient was more alert and talkative around 0330, stated that he was starting to feel better at that time. Voices no questions, needs, or concerns. In bed with call light within reach. Bed alarm on.
[2022-01-20 06:41] LABS: CALCIUM 8.8 mg/dL (8.4-10.2); CREATININE, serum 1.46 mg/dL (0.72-1.25); MAGNESIUM 1.9 mg/dL (1.6-2.6); POTASSIUM 5.1 mmol/L (3.5-4.5)
[2022-01-20 08:04] LABS: TRICYCLIC ANTIDEPRESS URINE NEGATIVE
[2022-01-20 08:40] LABS: BASO % 0.2 % (0.0-2.0); HEMATOCRIT 42.6 % (42.0-52.0); LYMPH # 2.8 K/mm3 (1.2-3.4); LYMPH % 14.3 % (20.0-51.0); MEAN CELL VOLUME 84 fl (80.0-100.0); MEAN CORPUSCULAR HEMOGLOBIN 28 pg (27-31); MEAN CORPUSCULAR HGB CONC 33 g/dl (33.0-37.0); MEAN PLATELET VOLUME 11.5 fl (7.4-10.4); MONO # 0.3 K/mm3 (0.1-0.6); MONO % 1.3 % (1.7-9.3); PLATELET COUNT 321 K/mm3 (130-400); RED BLOOD COUNT 5.06 M/mm3 (4.20-5.60); REDCELL DISTRIBUTION WIDTH-CV 14.7 % (11.5-14.5)
--- NOTE | 2022-01-20 09:49 | NUR ---
UA and sputum collected.
--- NOTE | 2022-01-20 10:29 | NUR ---
Initial visit; Patient thanked Charge Accounts Audit Clerk for checking on him and offering God's blessings and keeping him in aircraft detail draftsperson's prayers.
--- NOTE | 2022-01-20 10:30 | NUR ---
Initial visit; Patient thanked Brick Offbearer for looking in on him, offering prayer and God's blessings. Brick Offbearer will keep Julio in her prayers as well.
--- NOTE | 2022-01-20 11:53 | NUR ---
Patient's BG 432, Lakeisha notified, 14units SSI given SQ as per DEC.
--- NOTE | 2022-01-20 12:42 | NUR ---
contact worker met with patient to discuss discharge plan. Patient currently lives at home with his life partner Yolanda Ocampo ([phone]) in [place]. Patient reports to being fully independent with his ADL's and does not utilize any DME to assist with mobility. States " i make cane's so if i need one, i'll just make me one". Patient is currently on 3L on NC oxygen during interaction, but reports that he does not use oxygen at home. PCP is LINNETTE Rosales at [facility] and he utilizes [facility] in [place] for medications. Patient reports that the only medication that he has trouble affording it " the one that cost about $700". Patient does have a DPOA-HC established listing Yolanda and a copy can be found in the patient's EMR. Patient is planning on returning home once medically ready. Discharge plan: Home
--- NOTE | 2022-01-20 16:26 | NUR ---
Patient has done well today and is currently sleeping. was at bedside earlier and stated the patient is at his baseline for mentation. Patient moves very well and is independent.
--- NOTE | 2022-01-20 16:49 | NUR ---
Lakeisha ANGLIN, notified that patient's BG is 453.
--- NOTE | 2022-01-20 22:00 | NUR ---
PT STATES HE DOES NOT WEAR A CPAP AT HOME AND HAS NOT HAD A HOME STUDY. ORDER INCOMPLETE WITHOUT SETTINGS. WILL MONITOR O2 SAT THROUGH SHIFT.
--- NOTE | 2022-01-20 22:23 | NUR ---
Patient assessed around 2100. Alert and oriented, and able to make needs known. Denies having pain and discomfort. Peripheral INT to right hand. Reports SOB and dyspnea with exertion. On oxygen at 3 L/min via NC. LS CTA in upper lobes, diminished in lower. HRR. Telemetry in place: normal sinus. BSAx4. Abdomen soft and non-tender. 1+ edema BLE. Voices no questions, needs, or concerns at this time. In bed with call light within reach.
[2022-01-21 00:03] VITALS: BP 126/67; PULSE 87; TEMP 97.4
--- NOTE | 2022-01-21 01:32 | NUR ---
Patient's BS around midnight was 427. Called to RYLAN Egan. New order for IV insulin and to recheck in 1 hour. Given around 0030 per orders. Recheck around 0130 was 298. Order to give high dose sliding scale SQ per orders. Given insulin per orders.
[2022-01-21 04:46] VITALS: BP 127/63; PULSE 70; TEMP 98.4
--- NOTE | 2022-01-21 05:56 | NUR ---
Patient recieved PRN APAP and PRN Tramadol once this shift for headache and back pain. Patient has been drowsy, but does awaken to verbal stimuli. Recieved insulin per orders. Continues on steroids and ABX per orders for pneumonia. On oxygen at 4 L/min via NC. Voices no questions, needs, or concerns at this time. In bed with call light within reach.
[2022-01-21 06:48] LABS: MEAN CELL VOLUME 86 fl (80.0-100.0); MEAN CORPUSCULAR HEMOGLOBIN 29 pg (27-31); MEAN CORPUSCULAR HGB CONC 33 g/dl (33.0-37.0); MEAN PLATELET VOLUME 11.5 fl (7.4-10.4); PLATELET COUNT 319 K/mm3 (130-400); RED BLOOD COUNT 4.91 M/mm3 (4.20-5.60); REDCELL DISTRIBUTION WIDTH-CV 15.1 % (11.5-14.5)
[2022-01-21 07:09] LABS: CALCIUM 8.6 mg/dL (8.4-10.2); CREATININE, serum 1.09 mg/dL (0.72-1.25); MAGNESIUM 2.2 mg/dL (1.6-2.6); POTASSIUM 4.1 mmol/L (3.5-4.5)
[2022-01-21 07:51] VITALS: BP 148/77; PULSE 68; TEMP 98.1
[2022-01-21 08:05] LABS: ANISOCYTOSIS 1+; BAND 3 % (0-10); LYMPHOCYTE 24 % (20.0-51.0); NEUTROPHILS 60 % (42.0-75.2); NUCLEATED RED BLOOD CELL 1 (0-6); PLATELET ESTIMATE NORMAL (NORMAL)
--- NOTE | 2022-01-21 10:00 | NUR ---
Reviewed and agree with student nurse assessment.
[2022-01-21 11:36] VITALS: BP 128/67; PULSE 76; TEMP 98.2
[2022-01-21 16:54] VITALS: BP 125/57; PULSE 97; TEMP 98.2
--- NOTE | 2022-01-21 17:10 | NUR ---
Pt awake and alert. Ambulating in the hallway. States that he's feeling much better after his shower. Denies needs. Call light within reach.
[2022-01-21 19:21] VITALS: BP 119/66; PULSE 81; TEMP 98.5
--- NOTE | 2022-01-21 23:02 | NUR ---
ASSESSMENT COMPLETED; PATIENT IN NO ACUTE DISTRESS. PATIENT RESTING COMFORTABLY IN BED. WILL CONTINUE TO MONITOR
[2022-01-22 00:52] VITALS: BP 131/66; PULSE 79; TEMP 98.5
[2022-01-22 04:35] VITALS: BP 137/73; PULSE 71; TEMP 97.7
--- NOTE | 2022-01-22 06:30 | NUR ---
THE PATIENT IS SLEEPING IN BED UPON ENTRY. WILL RETURN FOR ASSESSMENT AND MEDICATIONS.
--- NOTE | 2022-01-22 06:44 | NUR ---
PT DID NOT WEAR CPAP AT NIGHT. HAD A MIGRAINE AND RT DEPARTMENT DOES NOT HAVE AUTO TITRATE CPAP'S TO USE AT THIS TIME DUE TO A RECALL. PT STATES THEY NEED A SLEEP STUDY DONE. DOES NOT WEAR CPAP AT HOME.
[2022-01-22 07:38] LABS: HEMATOCRIT 43.9 % (42.0-52.0); HEMOGLOBIN 14.3 g/dl (13.5-18.0); MEAN CELL VOLUME 85 fl (80.0-100.0); MEAN CORPUSCULAR HEMOGLOBIN 28 pg (27-31); MEAN CORPUSCULAR HGB CONC 33 g/dl (33.0-37.0); MEAN PLATELET VOLUME 11.5 fl (7.4-10.4); PLATELET COUNT 326 K/mm3 (130-400); RED BLOOD COUNT 5.18 M/mm3 (4.20-5.60); REDCELL DISTRIBUTION WIDTH-CV 15.3 % (11.5-14.5)
[2022-01-22 07:59] VITALS: BP 129/68; PULSE 68; TEMP 98
[2022-01-22 08:32] LABS: BAND 1 % (0-10)
[2022-01-22 08:33] LABS: ANISOCYTOSIS 1+; LYMPHOCYTE 25 % (20.0-51.0); PLATELET ESTIMATE NORMAL (NORMAL)
[2022-01-22 08:34] LABS: NEUTROPHILS 63 % (42.0-75.2)
[2022-01-22] MEDS ORDERED: GLUCOPHAGE500 MG/TAB PO (08:45)
[2022-01-22] MEDS ORDERED: PREDNISONE20 MG PO (08:47)
[2022-01-22] MEDS ORDERED: LASIX 40MG TABL40 MG PO (08:48)
[2022-01-22] MEDS ORDERED: DOXYCYCLINE 10100 MG PO (09:04)
[2022-01-22] MEDS ORDERED: PROAIR HFA0.09 MG/AC IH (09:04)
[2022-01-22] MEDS ORDERED: OXYGEN (09:05)
[2022-01-22] MEDS ORDERED: LANCETS MC (09:06)
[2022-01-22] MEDS ORDERED: INSULIN PEN NE1 EAC1 MC (09:06)
[2022-01-22] MEDS ORDERED: GLUTOSE 1515 GM PO (09:06)
[2022-01-22] MEDS ORDERED: GLUCOSE TEST ST1 DEV MC (09:06)
[2022-01-22] MEDS ORDERED: CONTROL SOLUTI1 EAC1 MC (09:06)
[2022-01-22] MEDS ORDERED: FREESTYLE PREC1 EAC5 MC (09:06)
[2022-01-22] MEDS ORDERED: BD ALCOHOL1 SWA MC (09:06)
--- NOTE | 2022-01-22 11:45 | NUR ---
The patient was given education by via [employer] medical equipment for his oxygen, patient verbalized understanding. Discharge education given, patient verbalized understanding. IV removed, and Escorted out at this time.
--- NOTE | 2022-01-22 15:13 | NUR ---
SW was informed that patient would be dc'ing on this day and would need O2. SW was previously informed that patient would be obtaining O2 from [facility]. [facility] staff contacted, documentation sent to facility, and contacted. Patient to dc from facility after O2 is obtained. Nothing further.
== END 2022-01-22 11:45 | disposition home or self-care (01) | DRG 189 ==
LOC: COL.ER 09:53 → MEDICAL 13:58
PROVIDERS: Nurse Practitioner; ADMIT Internal Medicine
DX: J96.01 Acute respiratory failure with hypoxia (principal); J44.1 Chronic obstructive pulmonary disease with (acute) exacerbation; E87.1 Hypo-osmolality and hyponatremia; N17.9 Acute kidney failure, unspecified; I50.22 Chronic systolic (congestive) heart failure; I42.0 Dilated cardiomyopathy; G93.40 Encephalopathy, unspecified; Z68.41 Body mass index [BMI] 40.0-44.9, adult; F17.210 Nicotine dependence, cigarettes, uncomplicated; I11.0 Hypertensive heart disease with heart failure; E11.9 Type 2 diabetes mellitus without complications; E78.5 Hyperlipidemia, unspecified; K44.9 Diaphragmatic hernia without obstruction or gangrene; E87.5 Hyperkalemia; N14.1 Nephropathy induced by other drugs, medicaments and biological substances; T50.2X5A Adverse effect of carbonic-anhydrase inhibitors, benzothiadiazides and other diuretics, initial encounter; E66.9 Obesity, unspecified; G47.33 Obstructive sleep apnea (adult) (pediatric); J40 Bronchitis, not specified as acute or chronic; R16.0 Hepatomegaly, not elsewhere classified; K57.30 Diverticulosis of large intestine without perforation or abscess without bleeding; K76.0 Fatty (change of) liver, not elsewhere classified; Z79.84 Long term (current) use of oral hypoglycemic drugs; Z79.82 Long term (current) use of aspirin; Z20.822 Contact with and (suspected) exposure to COVID-19
CPT/HCPCS: 99223-AI; 99232-AI; 99233-AI; 99239; A9284; J0696; J1650; J1815; J2405; J2920; J7030; J7512; Q9967

== ENCOUNTER 2023-10-18 21:28 | Emergency (ER) | payer OTHER ==
[~2023-10-18] VITALS: Ht 175.3 cm; Wt 111.4 kg
[~2023-10-18 21:28] MED LIST changes: +ALDACTONE 25MG25 M1 PO; +ASPIRIN 81M81 MG/TA2 PO; +BD ALCOHOL1 SWA MC; +CONTROL SOLUTI1 EAC1 MC; +COREG12.5 MG PO; +FREESTYLE PREC1 EAC5 MC; +GLUCOSAMINE & C1 CA2 PO; +GLUCOSE TEST ST1 DEV MC; +GLUTOSE 1515 GM PO; +INSULIN PEN NE1 EAC1 MC; +LANCETS MC; +OXYGEN; +PREDNISONE50 MG PO; +PROAIR HFA0.09 MG/AC IH; +VENTOLIN0.09 MG IH; +ZOFRAN ODT4 MG PO
[2023-10-18 21:32] VITALS: TEMP 98.4
[2023-10-18] MEDS ORDERED: Benzonatate 100 MG CAP PO ONE (22:15)
[2023-10-18] MEDS ORDERED: fentaNYL 50 MCG/ML 2 ML VIAL IV ONE (22:15)
[2023-10-18 22:18] LABS: HEMOGLOBIN 17.5 g/dl (13.5-18.0); MEAN CELL VOLUME 86 fl (80.0-100.0); MEAN CORPUSCULAR HEMOGLOBIN 29 pg (27-31); MEAN CORPUSCULAR HGB CONC 33 g/dl (33.0-37.0); MEAN PLATELET VOLUME 10.3 fl (7.4-10.4); PLATELET COUNT 383 K/mm3 (130-400); RED BLOOD COUNT 6.13 M/mm3 (4.20-5.60); REDCELL DISTRIBUTION WIDTH-CV 14.4 % (11.5-14.5)
[2023-10-18 22:27] LABS: ALANINE AMINOTRANSFERASE 36 U/L (0-55); ALBUMIN 4.1 gm/dL (3.5-5.0); ALKALINE PHOSPHATASE 118 U/L (40-150); ANION GAP 13 mmol/L (7-16); AST,SGOT 26 U/L (5-34); BILIRUBIN,TOTAL 0.3 mg/dL (0.2-1.2); BLOOD UREA NITROGEN 21 mg/dL (8-26); CALCIUM 9.3 mg/dL (8.4-10.2); CARBON DIOXIDE 20 mmol/L (22-29); CHLORIDE 104 mmol/L (98-107); GLUCOSE 176 mg/dL (70-99); POTASSIUM 3.8 mmol/L (3.5-4.5); SODIUM 137 mmol/L (136-145); TOTAL PROTEIN 7.8 gm/dL (6.2-8.1)
[2023-10-18] MEDS ORDERED: Ondansetron 4 MG/2 ML VIAL IV ONE (22:30)
[2023-10-18 22:34] LABS: TROPONIN-I < 0.010 ng/mL (0.00-0.033)
[2023-10-18 22:45] LABS: HEMATOCRIT 52.9 % (42.0-52.0)
[2023-10-18] MEDS ORDERED: Albuterol/Ipratropium 3 MG-0.5 MG/3 ML Neb Soln IH ONE (23:00)
[2023-10-18] MEDS ORDERED: droPERidol 2.5 MG/ML 2 ML VIAL IV ONE (23:00)
[2023-10-18] MEDS ORDERED: Iohexol 350 - 100 ML VIAL IV ONE (23:23)
[2023-10-18 23:24] LABS: BAND 1 % (0-10)
[2023-10-18 23:30] LABS: EOSINOPHIL 1 % (0-4); NEUTROPHILS 51 % (42.0-75.2)
[2023-10-18 23:31] LABS: LYMPHOCYTE 35 % (20.0-51.0); PLATELET ESTIMATE NORMAL (NORMAL)
[2023-10-18] MEDS ORDERED: NS 74 ML IV ONE (23:31)
[2023-10-19] MEDS ORDERED: Albuterol/Ipratropium 3 MG-0.5 MG/3 ML Neb Soln IH ONE (00:45)
[2023-10-19] MEDS ORDERED: methylPREDNISolone Sod Succ 125 MG/2 ML VIAL IV ONE (00:45)
[2023-10-19] MEDS ORDERED: Doxycycline Hyclate 100 MG in NS 150 ML IV ONE (00:45)
[2023-10-19] MEDS ORDERED: DOXYCYCLINE 10100 MG PO (00:47)
[2023-10-19] MEDS ORDERED: PREDNISONE20 MG PO (00:47)
[2023-10-19 00:59] LABS: COLLECTION METHOD CLEAN CATCH
[2023-10-19 01:19] LABS: TRICYCLIC ANTIDEPRESS URINE NEGATIVE (NEGATIVE)
[2023-10-19 01:22] LABS: PH 5.5 (5.0-8.5); URINE APPEARANCE Clear (CLEAR/HAZY); URINE BLOOD TRACE-INTACT (NEGATIVE); URINE COLOR Yellow (YELLOW); URINE GLUCOSE 3+ (NEGATIVE); URINE KETONE Negative (NEGATIVE); URINE NITRATE Negative (NEGATIVE); URINE PROTEIN(semi-quant) TRACE (NEGATIVE); URINE UROBILINOGEN 0.2 E.U/dL (0.2-1.0)
[2023-10-19 01:23] LABS: SQUAMOUS EPITHELIAL 0-2 /hpf (0-10); URINE BACTERIA None Seen /hpf (NONE SEEN); URINE RBC 0-2 /hpf (0-2); URINE WBC None Seen /hpf (0-2)
[2023-10-19 02:16] VITALS: BP 123/82; PULSE 60
[2023-10-19 08:27] LABS: PATHOLOGY DIFF REVIEW OK
== END 2023-10-19 02:16 | disposition home or self-care (01) ==
LOC: COL.ER 21:28
PROVIDERS: Emergency Medicine
DX: J44.1 Chronic obstructive pulmonary disease with (acute) exacerbation (principal); D72.829 Elevated white blood cell count, unspecified; E11.9 Type 2 diabetes mellitus without complications; F17.200 Nicotine dependence, unspecified, uncomplicated; Z79.84 Long term (current) use of oral hypoglycemic drugs; Z88.0 Allergy status to penicillin
CPT/HCPCS: J1790; J2405; J2930; J3010; Q9967

== ENCOUNTER 2024-02-12 11:31 | Emergency (ER) | payer OTHER ==
[~2024-02-12] VITALS: Ht 175.3 cm; Wt 124.2 kg
[2024-02-12 11:46] VITALS: TEMP 98.1
[2024-02-12 13:52] LABS: HEMOGLOBIN 17.3 g/dl (13.5-18.0); MEAN CELL VOLUME 86 fl (80.0-100.0); MEAN CORPUSCULAR HEMOGLOBIN 28 pg (27-31); MEAN CORPUSCULAR HGB CONC 33 g/dl (33.0-37.0); MEAN PLATELET VOLUME 10.2 fl (7.4-10.4); PLATELET COUNT 349 K/mm3 (130-400); REDCELL DISTRIBUTION WIDTH-CV 14.9 % (11.5-14.5)
[2024-02-12 13:56] LABS: HEMATOCRIT 52.4 % (42.0-52.0)
[2024-02-12 14:10] LABS: ALBUMIN 3.9 g/dL (3.5-5.0); BILIRUBIN,TOTAL 0.4 mg/dL (0.2-1.2); C-REACTIVE PROTEIN 2.14 mg/dL (0.00-0.50); CALCIUM 9.6 mg/dL (8.4-10.2); CREATININE, serum 1.02 mg/dL (0.72-1.25); POTASSIUM 4.7 mEq/L (3.5-4.5); TOTAL PROTEIN 8.1 g/dl (6.2-8.1)
[2024-02-12 14:22] LABS: BAND 3 % (0-10); LYMPHOCYTE 15 % (20.0-51.0); NEUTROPHILS 75 % (42.0-75.2)
[2024-02-12 14:24] LABS: ANISOCYTOSIS 1+; PLATELET ESTIMATE NORMAL (NORMAL)
[2024-02-12] MEDS ORDERED: Iohexol 300 - 100 ML VIAL IV ONE (14:41)
[2024-02-12] MEDS ORDERED: NS 100 ML IV SCH (14:42)
[2024-02-12] MEDS ORDERED: Ciprofloxacin 500 MG TAB PO ONE (15:30)
[2024-02-12] MEDS ORDERED: metroNIDAZOLE 250 MG TAB PO ONE (15:30)
[2024-02-12] MEDS ORDERED: Morphine 4 MG/ML VIAL IV ONE (15:30)
[2024-02-12] MEDS ORDERED: CIPRO 500MG TA500 MG PO (15:31)
[2024-02-12] MEDS ORDERED: FLAGYL500 MG PO (15:31)
[2024-02-12] MEDS ORDERED: droPERidol 2.5 MG/ML 2 ML VIAL IV ONE (15:45)
[2024-02-12 16:08] VITALS: BP 125/92; PULSE 86
== END 2024-02-12 16:10 | disposition home or self-care (01) ==
LOC: COL.ER 11:31
PROVIDERS: Nurse Practitioner Primary Care
DX: K57.92 Diverticulitis of intestine, part unspecified, without perforation or abscess without bleeding (principal); Z88.1 Allergy status to other antibiotic agents
CPT/HCPCS: J1790; J2270; Q9967